=== PATIENT | female | born 1935 | race Caucasian/White ===

== ENCOUNTER → 2016-12-22 | Outpatient (CLI) | payer BC ==
[~2016-12-22] MED LIST: ACET-1311 PO; ARC10 PO; ASPEC81 PO; CYAN10005 PO; NMN5 PO; RISP0.5T10 PO; RISP1TAB68 PO; SERT25TA PO; SIMV10TA2 PO
--- NOTE | 2016-12-30 06:42 | CODING QUERY NO DIAGNOSIS ---
TREATMENT RENDERED WITHOUT A DIAGNOSIS To promote full compliance with coding requirements relating to patient care, physician participation is requested in all cases of millinery teacher uncertainty. Please assist us with providing a diagnosis/symptom for the test(s) below: A diagnosis/symptom was not documented on your Order. A valid diagnosis/symptom is required to bill all insurances. Please remember that we are unable to code a diagnosis of rule out, probable, possible, questionable, or suspected. Tests that require a diagnosis: * DEPKOTE LEVEL DIAGNOSIS: Provider Signature: Date: Thank you Roxane Koo [facility] Information Management Once completed, please kindly fax back to [phone] For questions please call [phone]
== END | disposition home or self-care (01) ==
LOC: C.LABVPSUW 09:57
PROVIDERS: ATTEND Internal Medicine Critical Care Medicine
DX: Z01.89 Encounter for other specified special examinations (principal)

== ENCOUNTER → 2017-06-03 | Outpatient (CLI) | payer BC ==
[2017-06-03 14:15] LABS: INFLUENZA B ANTIGEN Neg for Influ B (NEG)
== END ==
LOC: C.LABVPSUW 13:30
PROVIDERS: ATTEND Internal Medicine Critical Care Medicine
DX: R50.9 Fever, unspecified (principal); R53.81 Other malaise